=== PATIENT | male | born 1940 | race Caucasian/White ===

== ENCOUNTER → 2017-02-09 | Outpatient (CLI) | payer MEDICARE ==
[~2017-02-09] MED LIST: AMOX-559 PO; ARTHRITIS MED; HYDR-385 PO; LEVO25TA61 PO; LEVO75TA73 PO; NO ROUTINE MEDS; ONDA-2 PO; OXYC-865 PO; PANT40TA65 PO; PNEI IJ; PNEU0.5D3 IM; RIVA15TA PO; RIVA20TA PO; SUCR1ORA13 PO
[2017-02-09 11:05] LABS: PLATELET COUNT, AUTOMATED 170 K/uL (150-450)
== END ==
LOC: LAB 10:25
PROVIDERS: ATTEND Internal Medicine
DX: K29.70 Gastritis, unspecified, without bleeding (principal); K80.20 Calculus of gallbladder without cholecystitis without obstruction; I71.4 Abdominal aortic aneurysm, without rupture; E03.9 Hypothyroidism, unspecified; I26.99 Other pulmonary embolism without acute cor pulmonale
CPT/HCPCS: 36415; 81001; 82040; 82150; 82247; 82310; 82374; 82435; 82565; 82947; 83690; 84075; 84132; 84155; 84295; 84443; 84450; 84460; 84520; 85025; 86677

== ENCOUNTER → 2017-02-12 | Outpatient (CLI) | payer MEDICARE ==
--- NOTE | 2017-02-12 10:57 | RADIOLOGY IMAGING REPORT ---
[place] [facility] [place] NAME: Ariel Mcrae : 1940 MR: [id number] V: [id number] EXAM DATE: ORDERING PHYSICIAN: BRANDO DENNY TECHNOLOGIST: Location: [facility] - [place] Patient: Ariel Mcrae : 1940 Visit/Account:[id number] Date of Sevice: 02/12/2017 ADDENDUM #1 Results were called to Dr. BRANDO DENNY at 02/12/2017 12:24 PM. Report Dictated By: Compa Freed at 02/12/2017 12:24 PM Report E-Signed By: Compa Freed at 02/12/2017 12:24 PM ORIGINAL REPORT ABDOMEN COMPLETE COMPARISON: None. HISTORY: AAA, Gall stones TECHNIQUE: Harrell scale ultrasound of the abdomen was performed. FINDINGS: LIVER: Upper normal size at 17.4 cm craniocaudally. Parenchyma is mildly echogenic consistent with h epatic steatosis. No discrete masses are seen in the liver. GALLBLADDER: Mild gallbladder wall thickening and pericholecystic fluid with positive sonographic Mu rphy sign reported by the boarding specialist, and in the appropriate clinical context this could represent c holecystitis. There are numerous mobile shadowing gallstones in the gallbladder. BILE DUCTS: There is no intrahepatic bile duct dilatation and the common duct is upper normal size f or age at 6.5 mm. PANCREAS: Obscured by bowel gas and could not be directly assessed. KIDNEYS: No solid masses, obstruction, or obvious calculus. The right kidney measures 10.5 cm bipo lar length and contains a 0.9 cm benign cortical cyst in the lower pole. The left kidney measures 12. 8 cm bipolar length and contains an exophytic benign simple cyst in the upper pole measuring 1.6 x 1 .4 cm. There are normal intrarenal resistive indices bilaterally, 0.61 on the right and 0.62 on the l eft. SPLEEN: Normal size, 12.6 cm maximally, with normal homogeneous echotexture. AORTA/VASCULAR: The visualized proximal aorta and IVC are patent. OTHER: The mid abdominal aorta is mildly dilated, measuring up to 3.3 cm maximally consistent with t he provided history of aneurysm. IMPRESSION: 1. Cholelithiasis with gallbladder wall thickening, trace pericholecystic fluid and positive sonogra phic Gamboa's sign. In the appropriate clinical context this could represent acute cholecystitis. Cli nical correlation is recommended. 2. Echogenic liver consistent with hepatic steatosis. 3. Benign cysts in both kidneys. 4. The pancreas was obscured by bowel gas. 5. Mid abdominal aortic aneurysm measuring 3.3 cm. Report Dictated By: Compa Freed at 02/12/2017 10:34 AM Report E-Signed By: Compa Freed at 02/12/2017 10:52 AM WSN:[id number]
== END ==
LOC: US 01:17
PROVIDERS: ATTEND Internal Medicine
DX: K80.10 Calculus of gallbladder with chronic cholecystitis without obstruction (principal); R19.8 Other specified symptoms and signs involving the digestive system and abdomen; K76.0 Fatty (change of) liver, not elsewhere classified; Q61.02 Congenital multiple renal cysts; I71.4 Abdominal aortic aneurysm, without rupture
CPT/HCPCS: 76700

== ENCOUNTER → 2017-02-13 | Outpatient (CLI) | payer MEDICARE ==
--- NOTE | 2017-02-13 15:39 | EKG ---
FACILITY: [facility] PATIENT NAME: TY CRUZ : [id number] MR: [id number] V: [id number] EXAM DATE: ORDERING PHYSICIAN: ANY REYNA TECHNOLOGIST: YOSEPH Test Reason : Blood Pressure : / mmHG Vent. Rate : 064 BPM Atrial Rate : 064 BPM P-R Int : 216 ms QRS Dur : 088 ms QT Int : 436 ms P-R-T Axes : 052 015 027 degrees QTc Int : 449 ms Sinus rhythm with 1st degree AV block Inferior infarct , age undetermined T flattening consistent with inferior ischemia vs normal variant When compared with ECG of 26-AUG-2015 07:54, Inferior T inversion are now flattened Confirmed by SHANNON VELÁSQUEZ ([id number]) on 02/14/2017 6:31:19 AM Referred By: Confirmed By:SHANNON VELÁSQUEZ
== END ==
LOC: RESP 09:49
PROVIDERS: ATTEND Surgery
DX: Z01.810 Encounter for preprocedural cardiovascular examination (principal); I44.0 Atrioventricular block, first degree

== ENCOUNTER → 2017-02-14 | Outpatient (CLI) | payer MEDICARE | LOC: LAB 12:19 | PROVIDERS: ATTEND Internal Medicine | DX: E03.9 Hypothyroidism, unspecified (principal) | CPT/HCPCS: 84439 ==

== ENCOUNTER 2017-02-15 01:29 | Observation (INO) | payer MEDICARE ==
[~2017-02-15] VITALS: Ht 185.4 cm; Wt 120.7 kg
[2017-02-15] VITALS (10 sets, daily range): BP systolic 98–152; BP diastolic 42–87
[2017-02-15] MEDS ORDERED: MIDAZOLAM 2 MG/2 ML VIAL IVP PRN (07:30)
[2017-02-15] MEDS ORDERED: FAMOTIDINE 20 MG TAB PO ONE (07:30)
[2017-02-15] MEDS ORDERED: LIDOCAINE/SOD BICARB 8.4% SYR ID ONE (07:30)
[2017-02-15] MEDS ORDERED: NORMOSOL R SOLN(*) 1000 ML BAG 1,000 ML IV PRN (07:30)
[2017-02-15] MEDS ORDERED: ROPIVACAINE 0.5% 20 ML VIAL ONE (07:49)
[2017-02-15] MEDS ORDERED: IOPAMIDOL 61% 75 ML INFUS BTL 0 ML ONE (07:50)
[2017-02-15] MEDS: AMPICILLIN/SULBACT (*) 3 GM VL 3 GM in NS(*) 0.9% 100 ML BAG 100 ML IVPB ONE ×2 (08:14→08:23)
[2017-02-15] MEDS ORDERED: PROPOFOL EMUL(*) 10MG/ML 20 ML 40 ML ONE (08:20)
[2017-02-15] MEDS ORDERED: DEXAMETHASONE SOD PHOS 10MG/ML ONE (08:20)
[2017-02-15] MEDS ORDERED: KETOROLAC 30 MG/ML VIAL ONE (08:20)
[2017-02-15] MEDS ORDERED: ONDANSETRON 4 MG/2 ML VIAL ONE (08:20)
[2017-02-15] MEDS ORDERED: LIDOCAINE MPF 1% 5 ML VIAL ONE (08:20)
[2017-02-15] MEDS ORDERED: ROCURONIUM BROM 10 MG/ML 10 ML ONE (08:21)
[2017-02-15] MEDS ORDERED: SUCCINYLCHOL CHL 200MG/10ML VL ONE (08:21)
[2017-02-15] MEDS ORDERED: fentaNYL CITR 100 MCG/2 ML AMP ONE ×2 (09:25→09:56)
[2017-02-15] MEDS ORDERED: NS 0.9% IRRIGATION 1000ML PLCT IR ONE (10:15)
[2017-02-15] MEDS ORDERED: HYDROmorphone HCL 2 MG/ML SDV ONE (10:25)
[2017-02-15] MEDS ORDERED: NS(*) 0.9% 1000 ML BAG 1,000 ML IV PRN ×2 (11:47→12:23)
[2017-02-15] MEDS ORDERED: FLUSH 10 ML SYR IVP PRN (11:50)
[2017-02-15] MEDS ORDERED: ONDANSETRON 4 MG/2 ML VIAL IVP PRN (11:50)
[2017-02-15] MEDS ORDERED: NALOXONE HCL 0.4 MG/ML VIAL IVP PRN (11:50)
[2017-02-15] MEDS ORDERED: MORPHINE 2 MG/ML SYR IVP PRN (11:50)
--- NOTE | 2017-02-15 11:58 | Post Operative Progress Note ---
Post Operative Progress Note Date: Feb 15, 2017 Time: 11:51 Surgeon: Idalia Dictation number: [id number] Anesthesia: GETA by Dr. Hawkins Pre-Op Diagnosis: Cholecystitis Post-Op Diagnosis: TYRLE Findings: C/W dx Procedure(s): Robotic cholecystectomy Specimen Removed:(May be N/A): GB and contents Complications: None Fluids: See anesthesia record Estimated Blood Loss: Minimal Date OP Note Dictated: Feb 15, 2017 Time OP Note Dictated: 11:52 ANY REYNA MD Feb 15, 2017 11:58
--- NOTE | 2017-02-15 19:26 | OPERATIVE REPORT 1 ---
EVENT DATE: February 15, 2017 SURGEON: Edward Friedman MD ANESTHESIOLOGIST: Rm Hawkins MD ANESTHESIA: General endotracheal anesthesia. PREOPERATIVE DIAGNOSIS Cholecystitis. POSTOPERATIVE DIAGNOSIS Cholecystitis. PROCEDURE PERFORMED Robotic cholecystectomy. COMPLICATIONS None. CONDITION Stable. BLOOD LOSS Minimal. FINDINGS This patient's gallbladder was markedly inflamed. SPECIMENS Gallbladder and contents. INDICATIONS This is a 76-year-old gentleman who was referred to my office by his primary care provider a couple of days ago with increasing frequency and severity right upper quadrant abdominal pain. An ultrasound revealed gallbladder wall thickening and pericholecystic fluids, although his white blood cell count was normal. When I saw him in my office, his right upper quadrant pain had resolved. We had started him on antibiotics and scheduled him for more urgent surgery today. DESCRIPTION OF PROCEDURE The patient was brought to the operating room and placed supine on the operating table. General endotracheal anesthesia was administered, and his abdomen was prepped and draped in a sterile fashion. A timeout was completed, and I injected the infraumbilical skin with 0.5% ropivacaine plain. I made a curvilinear smiley face type incision in the infraumbilical rim and dissected down through the dermis and subcutaneous fat. I identified the midline fascia and made a vertical incision in the midline fascia. I grasped the fascial edges with Bianca clamps and then bluntly entered the peritoneal cavity with my finger. I placed two interrupted 0 Vicryl sutures transversely through the vertical fascial defect and then inserted a 12 mm robotic Giulia type port through this wound and secured it in place with sutures. I insufflated the abdomen to a pressure of 15 mmHg, and then under direct visualization, I placed three 8 mm ports in the left upper quadrant, left mid abdomen, and then right mid abdomen. I then docked the robot, and I inserted all of the instruments. I had the patient in reverse Trendelenburg and planed towards his left. I then identified the gallbladder. The gallbladder was very thick and infected, and I could not grab it. I used 3-0 silk sutures and placed [id number] sutures in it, which I then grabbed these sutures and retract the gallbladder towards the patient's right shoulder. Ultimately with a lot of blunt and electrocautery dissection, I was able to get down around the infundibulum after stripping dense adhesions off the gallbladder. I identified the cystic duct and artery and cleaned these off circumferentially. I clipped the artery proximally and distally and divided it between clips. I identified the cystic duct after cleaning it off. I used Firefly and identified the glow of the common bile duct and noted that I was away from this. I clipped the cystic duct with two clips distally and one clip at the infundibulum-cystic duct junction and then divided the duct between clips. I then divided the posterior attachment of the gallbladder, it from the gallbladder fossa, and then placed the gallbladder in a surgical specimen retrieval bag. There were several large stones. I made several holes in the gallbladder due to all the inflammation. I retrieved all of the stones, and these were placed into the surgical specimen retrieval bag as well. I then removed the bag from the right upper quadrant and made sure there were no residual stones or other abnormalities and no bile leaks or bleeding, and there was none. I placed Surgicel down near the lower portion of the gallbladder fossa near the cystic artery and ducts and then covered the whole area with Mark hemostatic powder. This was all dry when this was completed. I then removed the instruments, followed by the ports, and then placed a running 0 Vicryl suture through the vertical fascial defect in the midline and tied all three of these down with good reapproximation of the fascial edges and no remaining fascial defect. The skin at each port site was closed with 4-0 Monocryl subcuticular sutures. The left lateral incision was oozing, and so I controlled this with a figure-of- eight 3-0 nylon suture and then cleaned and dried the skin. I placed Steri- Strips over the incisions, followed by sterile surgical dressings. The patient was awakened and extubated in the operating room and transported to the recovery room in stable condition having tolerated the procedure without apparent problems. BRIANNA
[2017-02-15] MEDS: FAMOTIDINE 20 MG TAB PO SCH (20:50)
[2017-02-15] MEDS: AMOX/CLAV 875 MG TAB PO SCH (20:50)
[2017-02-15] MEDS: DOCUSATE SODIUM 100 MG CAP PO SCH (20:50)
[2017-02-16 02:55] VITALS: BP 107/71
[2017-02-16] MEDS ORDERED: LEVOTHYROXINE SOD 0.075 MG TAB PO SCH (06:00)
[2017-02-16 06:59] LABS: PLATELET COUNT, AUTOMATED 190 K/uL (150-450)
[2017-02-16] MEDS ORDERED: PER PO (07:58)
[2017-02-16] MEDS ORDERED: DOCU-202 PO (07:58)
[2017-02-16 07:59] VITALS: BP 131/86
--- NOTE | 2017-02-16 08:01 | Short(Outpt) Discharge Summary ---
Discharge Summary Reason for Hosp/Final Diag: (1) Cholelithiasis Status: Chronic Hospital Course & Plan: 02/16/17: POD#1 s/p robotic cholecystectomy. Doing well. Very little pain. Tolerating diet. LFTs look good. Will d/c to home this morning. Departure Discharge to: Home, Self Care Discharge Instructions Home Meds Active Scripts Oxycodone/Acetaminophen (OXYCODONE/ACETAMINOPHEN 5MG/325 MG) 5 Mg/325 Mg Tab, 1 TAB PO Q4H Y for MODERATE PAIN, #15 TAB 0 Refills Prov:ANY REYNA MD 02/16/17 Docusate Sodium (DOCUSATE SODIUM) 100 Mg Capsule, 1 CAP PO BID, #30 CAPSULE 0 Refills Prov:ANY REYNA MD 02/16/17 Amoxicillin/Pot Clav 875-125 Mg Tab (AUGMENTIN 875-125 TABLET) 1 Each Tablet, 1 TAB PO Q12H, #20 TAB Prov:BRANDO DENNY MD 02/12/17 Levothyroxine Sodium (LEVOTHYROXINE SODIUM) 75 Mcg Tablet, 75 MCG PO QDAY, #90 TAB 1 Refill Prov:BRANDO DENNY MD 02/09/17 Oxycodone Hcl/Acetaminophen (PERCOCET 5-325 MG TABLET) 1 Each Tablet, 1 EACH PO QID Y for pain, #20 TAB Prov:BRANDO DENNY MD 02/09/17 Rivaroxaban 20 Mg (XARELTO 20 MG) 20 Mg Tablet, 20 MG PO QDAY, #90 TAB 1 Refill Prov:BRANDO DENNY MD 09/28/16 Discontinued Scripts Pantoprazole Sodium (PANTOPRAZOLE SODIUM) 40 Mg Tablet.dr, 40 MG PO QDAY, #30 TAB.SR 3 Refills Prov:BRANDO DENNY MD 02/09/17 Levothyroxine Sodium (LEVOTHYROXINE SODIUM) 25 Mcg Tablet, 25 MCG PO QDAY, #90 TAB 1 Refill Prov:BRANDO DENNY MD 10/30/16 Follow up Referrals: General Surgery - 02/28/17 @ Surgery, General with Any Reyna Md You have a follow up appointment scheduled with Dr. Reyna on 02/28/17, at 1: 30pm. Diet: Regular Activity: As Tolerated Special Instructions: You can remove the white surgical dressings on 02/17/17, then you can shower. After showering, leave the incisions open to air but leave the steristrips in place until they fall off on their own. Do not immerse the incisions for 2 weeks. You can take all of your medications as prescribed but DO NOT START TAKING YOUR XARELTO until 02/18/17. Problem Qualifiers (1) Cholelithiasis: Cholelithiasis location: gallbladder Cholecystitis presence: with cholecystitis Cholecystitis acuity: acute Biliary obstruction: without biliary obstruction Qualified Codes: K80.00 - Calculus of gallbladder with acute cholecystitis without obstruction ANY REYNA MD Feb 16, 2017 08:01
[2017-02-16] MEDS: DOCUSATE SODIUM 100 MG CAP PO SCH (09:11)
[2017-02-16] MEDS: FAMOTIDINE 20 MG TAB PO SCH (09:11)
[2017-02-16] MEDS: AMOX/CLAV 875 MG TAB PO SCH (09:11)
[2017-02-16 09:16] VITALS: Ht 185.4 cm; Wt 120.7 kg
== END 2017-02-16 08:07 | disposition home or self-care (01) ==
LOC: OR 01:29 → MED 13:00
PROVIDERS: ADMIT Surgery; ATTEND Surgery
DX: K81.9 Cholecystitis, unspecified (principal)
CPT/HCPCS: 36415; 47562; 82248; 85025; 88304; A9270; G0378; J0295; J0330; J1100; J1170; J1885; J2405; J2704; J2795; J3010; J7050; S2900; 82040; 82247; 82310; 82374; 82435; 82565; 82947; 84075; 84132; 84155; 84295; 84450; 84460; 84520; J2001; Q9967

== ENCOUNTER → 2017-06-14 | Outpatient (CLI) | payer MEDICARE ==
[2017-02-16 09:16] VITALS: BMI 35.1
[~2017-06-14] MED LIST changes: +DOCU-202 PO; +PER PO
== END ==
LOC: LAB 08:07
PROVIDERS: ATTEND Internal Medicine
DX: E03.9 Hypothyroidism, unspecified (principal)
CPT/HCPCS: 36415; 84443